=== PATIENT | female | born 2000 | race Two or more races ===

== ENCOUNTER 2018-12-30 01:28 | Emergency (ER) | payer OTHER ==
[~2018-12-30] VITALS: Ht 170.2 cm; Wt 59.0 kg
[2018-12-30] MEDS ORDERED: METOCLOPRAMIDE HCL 10 MG/2 ML VIAL IV ONE (02:00)
[2018-12-30] MEDS ORDERED: IV NS 0.9% 1,000 ML BAG IV ONE (02:00)
[2018-12-30] MEDS ORDERED: SUMATRIPTAN SUCCINATE 6 MG/0.5 ML VIAL SQ ONE ×2 (02:00→02:18)
--- NOTE | 2018-12-30 02:00 | NUR ---
BIBSELF FROM HOME. AAOX4. NAD. BREATJING EVEN AND UNLABORED. AMBULATORY. C/O HEADACHE ON R FRONTAL TO R PARIETAL. +NAUSEA, NO VOMITING. LIGHT AGGREAVATES THE HEADACHE. PT TO ER BED 9. AWAITING MD ORDERS.
--- NOTE | 2018-12-30 02:15 | NUR ---
IV LINE OBTAINED ON L AC 20G. LABS DRAWN SPORTS REPORTER AT BEDSIDE
[2018-12-30] MEDS ORDERED: METOCLOPRAMIDE HCL 10 MG/2 ML VIAL ONE (02:19)
[2018-12-30 02:34] LABS: ALBUMIN 3.7 g/dL (3.4-5.0); BILIRUBIN,TOTAL 0.3 mg/dL (0.2-1.0); CALCIUM, SERUM 8.9 mg/dL (8.5-10.1); CREATININE 0.9 mg/dL (0.6-1.3); TOTAL PROTEIN, SERUM 7.6 g/dL (6.4-8.2)
--- NOTE | 2018-12-30 02:34 | NUR ---
URINE COLLECTED AND SENT TO LAB
[2018-12-30 02:44] LABS: APPEARANCE,URINE Slightly Cloudy (CLEAR); BILIRUBIN,URINE SMALL (NEGATIVE); BLOOD, URINE Moderate Ery/uL (NEGATIVE); COLOR,URINE Yellow (YELLOW); KETONES,URINE Negative (NEGATIVE); LEUKOCYTE ESTERASE ,URINE Small (NEGATIVE); NITRITE, URINE Positive (NEGATIVE); PH,URINE 5.5 (5.0-8.0); PROTEIN,URINE 100 mg/dl (NEGATIVE); UGLUCOSE Negative (NEGATIVE); UROBILINOGEN,URINE 0.2 EU/dL (0.2)
[2018-12-30 02:48] LABS: BACTERIA,URINE Moderate /HPF (None Seen); MUCUS,URINE Few /LPF (None Seen); SQUAMOUS EPITHELIAL CELL,UR Moderate /HPF (None Seen)
[2018-12-30 02:52] LABS: BASOPHILS % (AUTO) 0.3 % (0.0-2.0); EOSINOPHILS % (AUTO) 0.1 % (0.0-6.0); HEMATOCRIT 38 % (33-45); LYMPHOCYTES % (AUTO) 9.5 % (20.0-44.0); MEAN CORPUSCULAR HGB CONC 34 g/dl (31.0-36.0); MEAN CORPUSCULAR VOLUME 88 fL (82-100); MONOCYTES # (AUTO) 0.9 /CMM (0.1-1.30); MONOCYTES % (AUTO) 8.7 % (2.0-12.0); NEUTROPHILS # (AUTO) 8.8 /CMM (1.8-8.9); NEUTROPHILS % (AUTO) 81.4 % (43.0-81.0); PLATELET COUNT (AUTO) 225 /CMM (150-450); RED BLOOD CELL COUNT(AUTO) 4.39 MIL/uL (4.0-5.2); WHITE BLOOD COUNT (AUTO) 10.8 K/uL (4.3-11.0)
--- NOTE | 2018-12-30 03:00 | NUR ---
US AT BEDSIDE
--- NOTE | 2018-12-30 03:55 | NUR ---
Patient discharged to home in stable condition. Written and verbal after care instructions given. Patient verbalizes understanding of instruction.IV removed. Catheter intact and site benign. Pressure and 4x4 applied to site. No bleeding noted. Pt ambulatory with a steady gait
[2018-12-30 04:12] VITALS: BP 109/95
== END 2018-12-30 03:57 | disposition home or self-care (01) ==
LOC: ER 01:32
DX: G43.909 Migraine, unspecified, not intractable, without status migrainosus (principal); R10.11 Right upper quadrant pain
CPT/HCPCS: 36415; 76705; 80048; 80076; 81001; 84703; 85025; 87086; 96372; 96374; 99284; J2765; J3030; J7030; 81000-TC; 87186-TC